=== PATIENT | male | born 1995 | race African-American/Black ===

== ENCOUNTER 2019-02-01 06:26 | Emergency (ER) | payer BC, OTHER, SELFPAY | END 2019-02-01 08:22 | disposition home or self-care (01) | LOC: ERS 06:26 | DX: J02.9 Acute pharyngitis, unspecified (principal); F41.9 Anxiety disorder, unspecified; F17.210 Nicotine dependence, cigarettes, uncomplicated | CPT/HCPCS: 99283 ==

== ENCOUNTER 2020-05-31 18:18 | Emergency (ER) | payer SELFPAY | END 2020-05-31 18:55 | disposition home or self-care (01) | LOC: ERS 18:18 | DX: M79.642 Pain in left hand (principal); F41.9 Anxiety disorder, unspecified; F17.290 Nicotine dependence, other tobacco product, uncomplicated | CPT/HCPCS: 99283 ==

== ENCOUNTER 2025-07-02 22:22 | Emergency (ER) | payer OTHER ==
[2025-07-02] MEDS ORDERED: Ibuprofen 800 MG TAB ONE (23:19)
== END 2025-07-03 00:05 | disposition home or self-care (01) ==
LOC: ERS 22:22
DX: S93.402A Sprain of unspecified ligament of left ankle, initial encounter (principal); F17.210 Nicotine dependence, cigarettes, uncomplicated; W18.31XA Fall on same level due to stepping on an object, initial encounter; Y93.9 Activity, unspecified
CPT/HCPCS: 99283